=== PATIENT | female | born 1970 | race Caucasian/White ===

== ENCOUNTER 2017-06-12 10:57 | Emergency (ER) | payer MEDICARE, MEDICAID ==
--- NOTE | 2017-06-12 12:17 | RAD ---
INDICATION: Head injury. COMPARISON: Comparison is made with a prior CT of the brain from February 17, 2016. TECHNIQUE: Contiguous axial sections of the brain were obtained from the skull base to the vertex without contrast. FINDINGS: The ventricles, cisterns and sulci are within normal limits. No significant focal abnormality or mass effect is seen. There is no evidence for hemorrhage. No fracture is seen. There is a small air-fluid level within the left maxillary sinus. The visualized portion of the paranasal sinuses and mastoid air cells otherwise appear clear. IMPRESSION: 1. NO EVIDENCE FOR ACUTE INTRACRANIAL ABNORMALITY. 2. SMALL AIR-FLUID LEVEL WITHIN THE LEFT MAXILLARY SINUS.
--- NOTE | 2017-06-12 12:58 | RAD ---
HISTORY: Trauma, and trauma COMPARISONS: None relevant TECHNIQUE: Multiple contiguous axial CT scans were obtained of the cervical spine without intravenous contrast, with coronal and sagittal multiplanar reformations. FINDINGS: BRAIN: The visualized brain is unremarkable CENTRAL CANAL: Evaluation of the central canal is limited on CT technique; however, there is no obvious canalicular mass or epidural hemorrhage. ALIGNMENT: There is straightening of the cervical lordosis. VERTEBRAL BODIES: There is multilevel anterolateral marginal osteophyte formation. There is no displaced fracture. JOINTS: There is osteophytosis of the lateral axial articulation of the uncovertebral and facet joints. MUSCULATURE: Unremarkable INTERVERTEBRAL DISCS: There is diffuse loss of intervertebral disc height. AXIAL IMAGES: On axial images, there is moderate bilateral neural foraminal narrowing at C5-C6 and C6-C7. There is vacuum phenomenon within the left neural foramen at C5-C6 suggestive of a foraminal disc protrusion. There is no significant osseous central canal stenosis. SOFT TISSUES: Multiple thyroid nodules are noted OTHER: None. IMPRESSION: 1. DEGENERATIVE DISC DISEASE AND OSTEOARTHRITIS. 2. PROBABLE LEFT-SIDED FORAMINAL DISC PROTRUSION AT C5-C6. 3. MULTIPLE THYROID NODULES. 4. NO ACUTE OSSEOUS INJURY TO THE CERVICAL SPINE
[2017-06-12 13:26] VITALS: BP 117/67
--- NOTE | 2017-06-12 13:46 | ED ---
Graeme Wilhelm Rebecca, scribed for bE Wadsworth MD on 06/12/17 at 1129 . Head Injury - HPI Summary HPI Summary: Pt is a 46 y/o F who presents to ED s/p head injury. At approximately 0900 this morning she was sitting in a chair and tipped over, hitting her head on the floor. Caregiver states that she hit the rear, parietal portion of the head. 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 and she did not experience a seizure. Caregiver reports that she is acting as her usual self. Denies any complaints at this time. Pt is a resident at a alf, the [facility]. All Hx obtained from caregiver, as pt's was unabl to provide Hx secondary to MR. - History Of Current Complaint Chief Complaint: EDHeadInjury Stated Complaint: FALL Time Seen by Provider: 06/12/17 11:14 Hx Obtained From: Family/Instructor Traffic Safety - Instructor Traffic Safety Hx Last Menstrual Period: 05/08/15 Mechanism Of Injury: Fall From Height Of: - Sitting Onset/Duration: Traumatic - Fell from her chair Severity Currently: None Pain Intensity: 0 Pain Scale Used: 0-10 Numeric Location of Head Injury: Parietal - Rear Associated Signs And Symptoms: Negative - Allergies/Home Medications Allergies/Adverse Reactions: Allergies Allergy/AdvReac Type Severity Reaction Status Date / Time No Known Allergies Allergy Verified 06/12/17 11:00 PMH/Surg Hx/FS Hx/Imm Hx Endocrine/Hematology History: Denies: Hx Diabetes, Hx Systemic Lupus Erythematosus Cardiovascular History: Denies: Hx Congestive Heart Failure, Hx Hypertension, Hx Pacemaker/ICD, Other Cardiovascular Problems/Disorders Respiratory History: Reports: Other Respiratory Problems/Disorders - SHORT WINDED WHEN SHE WALKS, FATIGUES EASIER GI History: Reports: Other GI Disorders - constipation Denies: Hx Ulcer History: Denies: Hx Dialysis, Hx Renal Disease, Other Problems/Disorders Musculoskeletal History: Denies: Hx Rheumatoid Arthritis, Hx Osteoporosis, Other Musculoskeletal History Sensory History: Reports: Hx Contacts or Glasses - GLASSES Denies: Hx Hearing Aid Opthamlomology History: Reports: Hx Contacts or Glasses - GLASSES Neurological History: Reports: Hx Headaches - ARACNOID CYST, Hx Seizures - LAST ONE YEARS AGO; H/O MULTIPLE SEIZURES AND FACIAL TICKS, Other Neuro Impairments/ Disorders - intellectual & developmental disability, encephalopathy, ARACHONOID CYST Psychiatric History: Reports: Hx Anxiety - OCD, Other Psychiatric Issues/ Disorders - OCD, mood swings Denies: Hx Panic Disorder - Cancer History Cancer Type, Location and Year: LYMPHOMA Hx Chemotherapy: Yes - AND RADIATION( 1 ROUND), FALL OF 2012 Hx Radiation Therapy: Yes - Surgical History Surgery Procedure, Year, and Place: 2007 PILONIDAL CYST, [facility] – [place]. MRI UNDER ANESTHESIA EVERY 18 MONTHS, [place]. 05/23/13 INCISIONAL BIOPSY AXILLARY MASS WITH BONE MARROW BIOPSY,- H/O LYMPHOMA [facility] [place]. 08/2013 LUMBAR PUNCTURES, FINE NEEDLE ASPIRATION, POWER PORT INSERTION. 05/2015 POWERPORT REMOVAL, [facility] [place] Hx Anesthesia Reactions: No - Immunization History Date of Tetanus Vaccine: utd Infectious Disease History: Denies: Hx Clostridium Difficile, Hx Hepatitis, Hx Human Immunodeficiency Virus (HIV), Hx of Known/Suspected MRSA, Hx Shingles, Hx Tuberculosis, Hx Known/ Suspected VRE, Hx Known/Suspected VRSA, History Other Infectious Disease, Traveled Outside the [place] in Last 30 Days - Family History Known Family History: Positive: Unknown - Unknown due to pt's MR - Social History Lives: Alf Alcohol Use: None Substance Use Type: Reports: None Smoking Status (MU): Never Smoked Tobacco Have You Smoked in the Last Year: No Review of Systems Negative: Fever Neurological: Other - Head injury 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 - 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 and seizure All Other Systems Reviewed And Are Negative: Yes Physical Exam - Summary Physical Exam Summary: 46 yr old with MR Triage Information Reviewed: Yes Vital Signs On Initial Exam: Initial Vitals Temp Pulse Resp BP Pulse Ox 98.1 F 79 16 104/66 98 06/12/17 11:00 06/12/17 11:00 06/12/17 11:00 06/12/17 11:00 06/12/17 11:00 Vital Signs Reviewed: Yes Appearance: Positive: Well-Appearing, No Pain Distress Skin: Positive: Warm Head/Face: Positive: Normal Head/Face Inspection Eyes: Positive: EOMI ENT: Positive: Normal ENT inspection, TMs normal Neck: Positive: Supple Respiratory/Lung Sounds: Positive: Clear to Auscultation, Breath Sounds Present Cardiovascular: Positive: RRR. Negative: Murmur Musculoskeletal: Positive: Strength/ROM Intact Neurological: Positive: Sensory/Motor Intact, Alert, Oriented to Person Place, Time - at her baseline of MR and interaction per the aid from alf, CN Intact II-III Psychiatric: Positive: Normal - Amarjit Coma Scale Best Eye Response: 4 - Spontaneous Best Motor Response: 6 - Obeys Commands Best Verbal Response: 5 - Oriented Diagnostics - Vital Signs Vital Signs Temp Pulse Resp BP Pulse Ox 06/12/17 11:00 98.1 F 79 16 104/66 98 - Laboratory Lab Statement: Any lab studies that have been ordered have been reviewed, and results considered in the medical decision making process. - CT Brain CT CT Interpretation: No Acute Changes - 1. NO EVIDENCE FOR ACUTE INTRACRANIAL ABNORMALITY. 2. SMALL AIR-FLUID LEVEL WITHIN THE LEFT MAXILLARY SINUS. CT Interpretation Completed By: Radiologist C-Spine CT CT Interpretation: No Acute Changes - 1. DEGENERATIVE DISC DISEASE AND OSTEOARTHRITIS. 2. PROBABLE LEFT-SIDED FORAMINAL DISC PROTRUSION AT C5-C6. 3. MULTIPLE THYROID NODULES. 4. NO ACUTE OSSEOUS INJURY TO THE CERVICAL SPINE CT Interpretation Completed By: Radiologist Head Injury Course/Dx - Diagnoses Provider Diagnoses: Minor closed head injury Discharge - Discharge Plan Condition: Good Disposition: HOME Patient Education Materials: Head Injury (ED) Referrals: Christelle Kendall MD [Primary Care Provider] - The documentation as recorded by the Graeme carrasquillo Rebecca accurately reflects the service I personally performed and the decisions made by Ananth beavers Walter, MD.
== END 2017-06-12 13:27 | disposition home or self-care (01) ==
LOC: ED 10:57
DX: S09.90XA Unspecified injury of head, initial encounter (principal); W19.XXXA Unspecified fall, initial encounter; Y93.9 Activity, unspecified; Y92.9 Unspecified place or not applicable
CPT/HCPCS: 70450; 72125; 99281

== ENCOUNTER 2018-03-29 08:30 | Emergency (ER) | payer MEDICARE, MEDICAID ==
--- NOTE | 2018-03-29 08:52 | RAD ---
HISTORY: Neurological changes/code kumar COMPARISONS: None TECHNIQUE: Multiple contiguous axial CT scans were obtained of the head without intravenous contrast. FINDINGS: HEMORRHAGE/INFARCT: There is no hemorrhage or acute infarct. MASSES/SHIFT: There is no mass or shift. EXTRA-AXIAL SPACES: There are no extra-axial fluid collections. SULCI AND VENTRICLES: The sulci and ventricles are normal in size and position for the patient's stated age. CEREBRUM: There are no focal parenchymal abnormalities. BRAINSTEM: There are no focal parenchymal abnormalities. CEREBELLUM: There are no focal parenchymal abnormalities. VESSELS: The vessels are grossly normal. PARANASAL SINUSES: The paranasal sinuses are clear. ORBITS: The orbits are unremarkable. BONES AND SOFT TISSUE: No bone or soft tissue abnormalities are noted. OTHER: None IMPRESSION: NO ACUTE INTRACRANIAL PATHOLOGY. PRELIMINARY FINDINGS WERE DISCUSSED WITH DR. LAL IN THE EMERGENCY DEPARTMENT AT APPROXIMATELY 8:48 AM ON MARCH 29, 2018.
[2018-03-29 09:09] LABS: ABS Basophils 0 10^3/ul (0-0.2); ABS Eosinophils 0.1 10^3/ul (0-0.6); ABS Lymphocytes 1.1 10^3/ul (1.0-4.8); ABS Monocytes 0.3 10^3/ul (0-0.8); ABS Neutrophils 4.2 10^3/ul (1.5-7.7); ABS Nucleated RBC 0 10^3/ul; Eosinophil % 1.3 % (0-6); Hematocrit 41 % (35-47); Hemoglobin 14.5 g/dl (12.0-16.0); Mean Corpuscular HGB Conc 35 g/dl (31-36); Mean Corpuscular Hemoglobin 34 pg (27-31); Mean Corpuscular Volume 97 fL (80-97); Mean Platelet Volume 8.1 um3 (7.4-10.4); Nucleated Red Blood Cells % 0.1; Platelet Count 119 10^3/ul (150-450); Red Blood Count 4.26 10^6/ul (4.0-5.4); Red Cell Distribution Width 13 % (10.5-15); White Blood Count 5.7 10^3/ul (3.5-10.8)
--- NOTE | 2018-03-29 09:21 | RAD ---
Indication: Neurologic changes. Code kumar. Respiratory disease. History of follicular lymphoma. Comparison: July 03, 2016 PET/CT. Technique: Upright AP 0902 hours Report: Clear lungs and pleural spaces. Negative for pneumothorax. The heart, pulmonary vasculature, and mediastinal contours are unremarkable. Unremarkable osseous structures and soft tissue contours. IMPRESSION: No evidence for acute intrathoracic disease.
[2018-03-29 09:24] LABS: EGFR Non-African American 77.6 (>60)
[2018-03-29 10:02] LABS: INR 0.94 (0.77-1.02)
[2018-03-29] MEDS ORDERED: carBAMazepine TAB(*) 200 MG PO ONE (11:06)
[2018-03-29 11:14] VITALS: BP 115/68
--- NOTE | 2018-03-29 18:51 | ED ---
Kendall Wilhelm Stephanie, scribed for Josh Mcgowan MD on 03/29/18 at 0856 . Neurological HPI - HPI Summary HPI Summary: The pt is a 47 y/o F BIBA to the ED with c/o AMS since 07:30 today. Per staff at housing facility, the pt began to act dizzy and drunk-like this morning with slurred speech. When asked where she feels pain, the pt points at her L frontal head near her eye. Per ambulance, the pts BP was 107/69 and her blood glucose was 33 mg/dL upon arrival. Per student career development specialist, the pt was stumbling and disoriented after some time of being awake and the episode lasted approximately 30 minutes. Manager [place] notes the pts blood pressure was low. - History of Current Complaint Stated Complaint: CODE [facility] Time Seen by Provider: 03/29/18 08:52 Hx Obtained From: EMS Hx Last Menstrual Period: 05/08/15 Onset/Duration: Sudden Onset, Started hours ago - 1, Still Present Timing: Constant Current Severity: Moderate Headache Location: Frontal Character: Dizzy, Impaired Speech Aggravating: Unknown Alleviating: Nothing Associated Signs and Symptoms: Positive: Headache, Dizziness - Allergy/Home Medications Allergies/Adverse Reactions: Allergies Allergy/AdvReac Type Severity Reaction Status Date / Time No Known Allergies Allergy Verified 06/12/17 11:00 Home Medications: Home Medications Acetaminophen TAB* [Tylenol TAB*] 650 mg PO Q4H PRN 03/29/18 [History Confirmed 03/29/18] Al Hydrox/Mg Hydrox/Simet LIQ* [Maalox Plus*] 30 ml PO Q4H PRN 03/29/18 [ History Confirmed 03/29/18] Calcium Carb/Vitamin D3/Vit K1 [Calcium + D] 1 chw PO BID 03/29/18 [History Confirmed 03/29/18] Cyanocobalamin TAB* [Vitamin B12 TAB*] 500 mcg PO DAILY 03/29/18 [History Confirmed 03/29/18] Diazepam TAB(*) [Valium TAB(*)] 10 mg PO .BEFORE APPOINTMENTS PRN 03/29/18 [ History Confirmed 03/29/18] Docusate CAP* [Colace Cap*] 100 mg PO DAILY 03/29/18 [History Confirmed 03/29/18 ] Fluocinonide 0.05% CM (NF) [Lidex 0.05% CREAM (NF)] 1 applic TOPICAL BID PRN 06/08 [History Confirmed 03/29/18] GuaiFENesin DM* [Robitussin DM*] 10 ml PO Q6H PRN 03/29/18 [History Confirmed ] Hemorrhoidal SUPP* [Preparation H Supp*] 1 supp PA Q12H PRN 03/29/18 [History Confirmed 03/29/18] Multivitamins/Minerals TAB* [Theragran/minerals TAB*] 1 tab PO DAILY 03/29/18 [ History Confirmed 03/29/18] Naproxen TAB* [Naprosyn 250 mg TAB*] 440 mg PO BID 03/29/18 [History Confirmed 03/29/18] Polyethylene Glycol 3350* [Miralax*] 17 gm PO DAILY 03/29/18 [History Confirmed 03/29/18] Propranolol LA CAP* [Inderal LA CAP*] 60 mg PO QPM 03/29/18 [History Confirmed 03/29/18] ValACYclovir (*) [Valtrex 500 mg (*)] 500 mg PO BID PRN 03/29/18 [History Confirmed 03/29/18] guaiFENesin ER TAB [Mucinex*] 600 mg PO BID PRN 03/29/18 [History Confirmed 06/08] PMH/Surg Hx/FS Hx/Imm Hx Endocrine/Hematology History: Denies: Hx Diabetes, Hx Systemic Lupus Erythematosus Cardiovascular History: Denies: Hx Congestive Heart Failure, Hx Hypertension, Hx Pacemaker/ICD, Other Cardiovascular Problems/Disorders Respiratory History: Reports: Other Respiratory Problems/Disorders - SHORT WINDED WHEN SHE WALKS, FATIGUES EASIER GI History: Reports: Other GI Disorders - constipation Denies: Hx Ulcer History: Denies: Hx Dialysis, Hx Renal Disease, Other Problems/Disorders Musculoskeletal History: Denies: Hx Rheumatoid Arthritis, Hx Osteoporosis, Other Musculoskeletal History Sensory History: Reports: Hx Contacts or Glasses - GLASSES Denies: Hx Hearing Aid Opthamlomology History: Reports: Hx Contacts or Glasses - GLASSES Neurological History: Reports: Hx Headaches - ARACNOID CYST, Hx Seizures - LAST ONE YEARS AGO; H/O MULTIPLE SEIZURES AND FACIAL TICKS, Other Neuro Impairments/ Disorders - intellectual & developmental disability, encephalopathy, ARACHONOID CYST Psychiatric History: Reports: Hx Anxiety - OCD, Other Psychiatric Issues/ Disorders - OCD, mood swings Denies: Hx Panic Disorder - Cancer History Cancer Type, Location and Year: LYMPHOMA Hx Chemotherapy: Yes - AND RADIATION( 1 ROUND), fall Hx Radiation Therapy: Yes - Surgical History Surgery Procedure, Year, and Place: 2007 PILONIDAL CYST, [facility] [place]. MRI UNDER ANESTHESIA EVERY 18 MONTHS, [place]. 05/23/13 INCISIONAL BIOPSY AXILLARY MASS WITH BONE MARROW BIOPSY,- H/O LYMPHOMA [facility] [place]. 08/2013 LUMBAR PUNCTURES, FINE NEEDLE ASPIRATION, POWER PORT INSERTION. 05/2015 POWERPORT REMOVAL, [facility] [place] Hx Anesthesia Reactions: No - Immunization History Date of Tetanus Vaccine: utd Infectious Disease History: Denies: Hx Clostridium Difficile, Hx Hepatitis, Hx Human Immunodeficiency Virus (HIV), Hx of Known/Suspected MRSA, Hx Shingles, Hx Tuberculosis, Hx Known/ Suspected VRE, Hx Known/Suspected VRSA, History Other Infectious Disease - Family History Known Family History: Positive: Unknown - Unknown due to pt's MR - Social History Occupation: Unemployed Lives: Senior Care Alcohol Use: None Hx Substance Use: No Substance Use Type: Reports: None Hx Tobacco Use: No Smoking Status (MU): Never Smoked Tobacco Have You Smoked in the Last Year: No Review of Systems Negative: Fever, Chills Negative: Erythema Negative: Sore Throat Negative: Chest Pain Negative: Shortness Of Breath Negative: Abdominal Pain, Vomiting, Nausea Negative: dysuria, hematuria Negative: Myalgia, Edema Negative: Rash Positive: Slurred Speech Psychological: Other - dizziness-acting All Other Systems Reviewed And Are Negative: Yes Physical Exam - Summary Physical Exam Summary: Constitutional: Well-developed, Well-nourished, Alert. (-) Distressed Skin: Warm, Dry HENT: Normocephalic; Atraumatic Eyes: Conjunctiva normal Neck: Musculoskeletal ROM normal neck. (-) JVD, (-) Stridor, (-) Tracheal deviation Cardio: Rhythm regular, rate normal, Heart sounds normal; Intact distal pulses; The pedal pulses are 2+ and symmetric. Radial pulses are 2+ and symmetric. (-) Murmur Pulmonary/Chest wall: Effort normal. (-) Respiratory distress, (-) Wheezes, (-) Rales Abd: Soft, (-), epigastric tenderness, (-) Distension, (-) Guarding, (-) Rebound Musculoskeletal: (-) Edema Lymph: (-) Cervical adenopathy Neuro: Alert, Oriented x3, no localizing signs neurologically, moves all extremities well, speech fluent, no lateralizing signs Psych: Mood and affect Normal NIH: 0 Triage Information Reviewed: Yes Vital Signs Reviewed: Yes Diagnostics - Laboratory Result Diagrams: 03/29/18 08:59 03/29/18 08:59 Lab Statement: Any lab studies that have been ordered have been reviewed, and results considered in the medical decision making process. - Radiology CXR Xray Interpretation: No Acute Changes Radiology Interpretation Completed By: Radiologist - NO EVIDENCE FOR ACUTE INTRATHORACIC DISEASE. ED physician has reviewed this report. - CT Brain CT Interpretation: No Acute Changes CT Interpretation Completed By: Radiologist - NO ACUTE INTRACRANIAL PATHOLOGY. PRELIMINARY FINDINGS WERE DISCUSSED WITH DR. MCGOWAN IN THE EMERGENCY DEPARTMENT AT APPROXIMATELY 8:48 AM ON MARCH 29, 2018. - EKG 08:55 Cardiac Rate: NL EKG Rhythm: Sinus Rhythm - 80 BPM EKG Interpretation: no STEMI Re-Evaluation - Re-Evaluation First Eval Re-Evaluation Time: 11:05 Change: Improved - The pt is back to baseline. Second Eval Re-Evaluation Time: 11:11 Change: Unchanged Course/Dx - Course Course Of Treatment: Possibly TIA. The pt received her medications at facility prior to being transferred to [facility]. - Diagnoses Provider Diagnoses: Post-ictal state - Physician Notifications Discussed Care Of Patient With: Trace Reyes Time Discussed With Above Provider: 09:00 Discharge - Sign-Out/Discharge Documenting (check all that apply): Discharge/Admit/Transfer - Discharge - Discharge Plan Condition: Stable Disposition: HOME Patient Education Materials: New-Onset Seizure in Adults (ED) Referrals: Trace Reyes MD [Medical Doctor] - 3 Days Additional Instructions: RETURN TO THE EMERGENCY DEPARTMENT FOR CHANGING OR WORSENING SYMPTOMS The documentation as recorded by the Kendall carrasquillo Stephanie accurately reflects the service I personally performed and the decisions made by , Josh Mcgowan MD.
== END 2018-03-29 11:33 | disposition home or self-care (01) ==
LOC: ED 08:30
DX: R41.82 Altered mental status, unspecified (principal)
CPT/HCPCS: 36415; 70450; 71045; 80053; 80061; 83605; 84484; 85025; 85610; 85730; 86850; 86900; 86901; 93005; 99283

== ENCOUNTER 2018-09-27 07:01 | Day surgery (SDC) | payer MEDICARE, MEDICAID ==
[~2018-09-27 07:01] MED LIST: Buffered Lidocaine 0.9% SYRIN* 5 ML/SYR SYRINGE INTRADERM ONE
[2018-09-27] MEDS ORDERED: Gadoteridol* (CONTRAST) 279.3 MG/ML 10 ML IV ONE (07:44)
[2018-09-27] MEDS ORDERED: Midazolam* 1 MG/ML 2 ML VIAL (2 MG) ONE (08:05)
[2018-09-27] MEDS ORDERED: Propofol* 10 MG/ML 20 ML BTL ONE (08:05)
[2018-09-27] MEDS ORDERED: Naloxone* 0.4 MG/ML 1 ML VIAL IV PRN (08:39)
[2018-09-27 09:41] VITALS: BP 104/61
[2018-09-27] MEDS ORDERED: Morphine PCA ADULT* 5 MG/ML 30 ML ONE (09:43)
== END 2018-09-27 09:59 | disposition home or self-care (01) ==
LOC: OR 07:01
PROVIDERS: ATTEND Internal Medicine
DX: E22.1 Hyperprolactinemia (principal); E23.0 Hypopituitarism; G93.89 Other specified disorders of brain; F72 Severe intellectual disabilities; Z85.72 Personal history of non-Hodgkin lymphomas; G40.89 Other seizures
CPT/HCPCS: 70553; A9579; J2250; J2270; J2704